=== PATIENT | female | born 1960 | race Caucasian/White ===

== ENCOUNTER 2023-01-08 09:00 | Outpatient (NON) | payer OTHER, SELFPAY | END 2023-01-08 09:01 | disposition home or self-care (01) | PROVIDERS: Visit Provider Internal Medicine Gastroenterology | DX: D12.5 Benign neoplasm of sigmoid colon (principal) | CPT/HCPCS: 88305 ==

== ENCOUNTER 2023-01-08 10:22 | Day surgery (SDC) | payer OTHER, SELFPAY ==
[2022-12-25 10:27] VITALS: BMI 22.1
--- NOTE | 2023-01-07 14:39 | P.HP_ITS ---
History of Present Illness History of Present Illness Consent: Risks, benefits, and alternatives have been discussed and questions answered. Patient agrees to proceed with procedure. Chief complaint: Neoplasm Screening Narrative: Jessie Han is a 62 year old female referred for colon cancer screening. Review of Systems Review of Systems: All systems reviewed & are unremarkable except as noted in HPI and below [facility] Social History Social History Smoking packs per day: 0.5 Smoking cigarettes per day: 10.0 Years smoked: 20 Smoking pack-years: 10.00 Smoking status: Former smoker Tobacco type: cigarettes Alcohol intake: current Drinks per week: 2 Alcohol use details: ONCE A WEEK Substance use: never Substance use type: does not use Living arrangements: with family Spiritual care concerns: No Meds Home Medications and Allergies Home Medications Medication Instructions Recorded Confirmed Type alprazolam 0.5 mg tablet 0.5 mg PO DAILY 12/25/22 01/08/23 History venlafaxine 75 mg capsule,extended 75 mg PO DAILY 12/25/22 01/08/23 History release 24 hr Allergies Allergy/AdvReac Type Severity Reaction Status Date / Time No Known Allergies Allergy Verified 01/08/23 10:50 Exam Resp: Auscultation: clear to auscultation bilaterally Cardio: Rate: regular rate Rhythm: regular rhythm GI: GI Palp: Yes Soft to palpation and No Tenderness to palpation present (GI) Assessment and Plan Assessment and plan (1) Colon cancer screening: Code(s): Z12.11 - Encounter for screening for malignant neoplasm of colon Status: Acute Assessment and Plan: Colonoscopy with possible biopsy or polypectomy or cautery or injection of substances.
[2023-01-08 10:50] VITALS: BP 122/56; PULSE 78; RESP 14; TEMP 36.8; O2SAT 100
--- NOTE | 2023-01-08 12:05 | WPDANESEPPF ---
Anes - Initial Pre Proc Eval Procedure: Operation Date: 01/08/23 12:00 Proposed Procedures p Screening Colonoscopy - Son Martell MD Date/Time: 01/08/23 12:05 Surgeon: Son Martell MD Pre Op Diagnosis: Neoplasm Screening Patient Data Age: 62 Gender: F Height: 1.7 m Weight: 65.2 kg Allergies Allergy/AdvReac Type Severity Reaction Status Date / Time No Known Allergies Allergy Verified 01/08/23 10:50 Home Medications Medication Instructions Recorded Confirmed Type alprazolam 0.5 mg tablet 0.5 mg PO DAILY 12/25/22 01/08/23 History venlafaxine 75 mg capsule,extended 75 mg PO DAILY 12/25/22 01/08/23 History release 24 hr Patient hx anesthesia problems: none Family hx anesthesia problems: none Results Review: All pre-operative results and documents have been reviewed as part of the pre-operative evaluation. [facility] Social History Social History Smoking packs per day: 0.5 Smoking cigarettes per day: 10.0 Years smoked: 20 Smoking pack-years: 10.00 Smoking status: Former smoker Tobacco type: cigarettes Alcohol intake: current Drinks per week: 2 Alcohol use details: ONCE A WEEK Substance use: never Substance use type: does not use Living arrangements: with family Spiritual care concerns: No Anes - Eval Final PreProcedure Day of Procedure 01/08/23 12:05 Patient weight: normal Heart: regular rate and rhythm Lungs: clear to auscultation Airway: Mallampati scale class II Neurological: alert and oriented Last oral intake: >/= 8 hours ASA classification: II Emergent: no Anesthetic plan: proceed Anesthesia type and monitoring: general GIVS and standard monitoring Results Review: All pre-operative results and documents have been reviewed as part of the pre-operative evaluation. Informed Consent: The patient's anesthetic plan and its attendant risks and benefits were discussed with the patient/family/POA. Questions were solicited and answers provided to the satisfaction of the patient/family/POA.
[2023-01-08] MEDS: LACTATED RINGERS 1,000 ML 150 ML IV CONT (12:09)
[2023-01-08 12:24] VITALS: BP 102/63; PULSE 75; RESP 15; O2SAT 100
[2023-01-08 12:34] VITALS: BP 101/57; PULSE 78; RESP 15; O2SAT 100
[2023-01-08 12:44] VITALS: BP 111/64; PULSE 67; RESP 16; O2SAT 96
--- NOTE | 2023-01-08 12:53 | WPDANESPN ---
Anes - Prog Note Post-Op Date/Time: 01/08/23 12:53 Cardiovascular status: normal Respiratory status: normal Airway patency: baseline Mental status: baseline Post-Op hydration status: normal Vital Signs: Last Vital Signs Temp 36.8 C 01/08/23 10:50 Pulse 78 01/08/23 12:34 Resp 15 01/08/23 12:34 BP 101/57 L 01/08/23 12:34 Pulse Ox 100 01/08/23 12:34 O2 Del Method Room Air 01/08/23 12:34 Pain Score (VAS): 0/10 I/O: Intake & Output 01/07/23 01/08/23 01/08/23 23:59 07:59 15:59 Intake Total 500 Balance 500 Patient Feedback: Patient satisfied with anesthetic care.
== END 2023-01-08 13:05 | disposition home or self-care (01) ==
PROVIDERS: Visit Provider Internal Medicine Gastroenterology
PROC: 0DJD8ZZ Inspection of Lower Intestinal Tract, Via Natural or Artificial Opening Endoscopic (ICD-10-PCS; CPT 45378; principal; 2023-01-08 12:00)
DX: Z12.11 Encounter for screening for malignant neoplasm of colon (principal)
CPT/HCPCS: 45380